=== PATIENT | male | born 1975 | race Caucasian/White ===

== ENCOUNTER 2022-08-05 17:16 | Emergency (ER) | payer MEDICAID ==
[~2022-08-05] VITALS: Ht 170.2 cm; Wt 74.8 kg
[2022-08-05 17:36] VITALS: BP 145/96
--- NOTE | 2022-08-05 20:18 | NUR ---
Laith gordon in [place] - 08/05/22 at 2019 by LEWIS PATIENT ELOPED WITHOUT SEEING BY .
--- NOTE | 2022-08-05 20:18 | NUR ---
PATIENT ELOPED NOT SEEN BY
== END 2022-08-05 20:18 | disposition left against medical advice (07) ==
LOC: ER 17:27
DX: M54.9 Dorsalgia, unspecified (principal); Z53.21 Procedure and treatment not carried out due to patient leaving prior to being seen by health care provider; Z60.2 Problems related to living alone

== ENCOUNTER 2022-08-14 19:16 | Emergency (ER) | payer MEDICAID ==
[~2022-08-14] VITALS: Ht 170.2 cm; Wt 72.6 kg
[2022-08-14 19:44] VITALS: BP 140/83
--- NOTE | 2022-08-14 19:57 | NUR ---
Bibself from home c/o lower back pain x 2 weeks 02/05 ps, denies injury/trauma. Ambulatory with steady gait.
[2022-08-14] MEDS ORDERED: IBUP-1957 PO (21:13)
[2022-08-14] MEDS ORDERED: CYCL5TAB PO (21:13)
[2022-08-14] MEDS ORDERED: METH4TAB3 PO (21:14)
--- NOTE | 2022-08-14 21:22 | NUR ---
Patient discharged to home in stable condition. Written and verbal after care instructions given. Patient verbalizes understanding of instruction.
== END 2022-08-14 21:24 | disposition home or self-care (01) ==
LOC: ER 19:19
DX: M54.9 Dorsalgia, unspecified (principal); M54.32 Sciatica, left side; Z60.2 Problems related to living alone; Z79.899 Other long term (current) drug therapy
CPT/HCPCS: 72131-TC

== ENCOUNTER 2023-01-02 20:23 | Emergency (ER) | payer MEDICAID ==
[~2023-01-02] VITALS: Ht 170.2 cm; Wt 74.8 kg
[~2023-01-02 20:23] MED LIST: CYCL5TAB PO; IBUP-1957 PO; METH4TAB3 PO
[2023-01-02 20:57] VITALS: BP 114/76; TEMP 98.6; O2SAT 98
[2023-01-02] MEDS ORDERED: NABU-141 PO (21:03)
[2023-01-02 22:07] LABS: BASOPHILS % (AUTO) 0.6 % (0.0-2.0); EOSINOPHILS # (AUTO) 0.1 K/uL (0.0-0.7); EOSINOPHILS % (AUTO) 1.7 % (0.0-6.0); HEMATOCRIT 41 % (39-51); HEMOGLOBIN 13.9 g/dL (13.5-17.5); LYMPHOCYTES # (AUTO) 1.5 K/uL (0.8-4.8); LYMPHOCYTES % (AUTO) 22.8 % (20.0-44.0); MEAN CORPUSCULAR HEMOGLOBIN 31 PG (26.0-33.0); MEAN CORPUSCULAR HGB CONC 34 g/dl (31.0-36.0); MEAN CORPUSCULAR VOLUME 92 fL (80-96); MONOCYTES # (AUTO) 0.5 K/uL (0.1-1.30); MONOCYTES % (AUTO) 7.7 % (2.0-12.0); NEUTROPHILS # (AUTO) 4.5 K/uL (1.8-8.9); NEUTROPHILS % (AUTO) 67.2 % (43.0-81.0); PLATELET COUNT (AUTO) 190 K/uL (150-450); RED BLOOD CELL COUNT(AUTO) 4.47 MIL/uL (4.5-6.0); RED CELL DISTRIBUTION WIDTH 12.8 % (11.5-15.0); WHITE BLOOD COUNT (AUTO) 6.7 K/uL (4.3-11.0)
[2023-01-02 22:16] LABS: CALCIUM, SERUM 8.9 mg/dL (8.5-10.1); CREATININE 1.3 mg/dL (0.6-1.3); POTASSIUM 3.8 mmol/L (3.5-5.1)
== END 2023-01-02 23:34 | disposition home or self-care (01) ==
LOC: ER 20:30
DX: B00.89 Other herpesviral infection (principal); R53.83 Other fatigue; Z60.2 Problems related to living alone
CPT/HCPCS: 36415; 80048-TC; 85025-TC